=== PATIENT | female | born 1970 | race Caucasian/White ===

== ENCOUNTER 2017-07-13 06:27 | Emergency (ER) | payer MEDICAID ==
[~2017-07-13] VITALS: Ht 157.5 cm; Wt 64.0 kg
[~2017-07-13 06:27] MED LIST: CIPR500T4 PO; LORA-441 PO; RANI150T9 PO; SUCR1TAB56 PO
[2017-07-13 06:30] VITALS: Ht 157.5 cm; Wt 64.0 kg
--- NOTE | 2017-07-13 07:06 | RADRPT ---
PROCEDURE: XR Chest. CLINICAL INDICATION: Chest pain, shortness of breath TECHNIQUE: Single frontal view of the chest was obtained COMPARISON: None FINDINGS: The heart and mediastinum are within normal limits. The lungs are clear. There is no pleural effusion or pneumothorax. The bones and soft tissue show no acute change. IMPRESSION: No definite abnormalities are identified. RPTAT:AAJJ Physician Johnathan Date Time Electronically viewed and signed by Zbigniew Oseguera Physician on 07/13/2017 07:05 KIYA/
[2017-07-13] MEDS ORDERED: ALPR0.5T PO (07:20)
--- NOTE | 2017-07-13 07:50 | ERD ---
ER Documentation Chief Complaint Chief Complaint Complains of midsternal chest pain and pressure since this am HPI Patient is a 47-year-old female with no medical problems who presents with palpitations. She said this started last night and Sunday. They come and go. She has had no chest pain. She says that she is having the palpitations currently. She has no treatment as of yet. She has not called her primary doctor as of yet. Her primary doctor is Dr. Omayra Reynoso. Upon review of old medical records this is the patient's fifth visit to the ER since 2007. ROS All systems reviewed and are negative except as per history of present illness. Medications Home Meds Active Scripts Alprazolam* (Xanax*) 0.5 Mg Tab, 0.5 MG PO Q8H Y for ANXIETY, #6 TAB Prov:KENNEDI JAMISON MD 07/13/17 Ranitidine Hcl* (Zantac*) 150 Mg Tablet, 150 MG PO BID Y for PAIN, #30 TAB Prov:CIPRIANO REYNOSO PA-C 04/05/15 Sucralfate* (Carafate*) 1 Gm Tab, 1 GM PO QID, #30 TAB Prov:CIPRIANO REYNOSO PA-C 04/05/15 Ciprofloxacin Hcl* (Ciprofloxacin Hcl*) 500 Mg Tablet, 500 MG PO BID for 3 Days , TAB Prov:CIPRIANO REYNOSO PA-C 04/05/15 Lorazepam* (Ativan*) 0.5 Mg Tablet, 0.5 MG PO Q8, #6 Q8 or prn anxiety Prov:CIPRIANO REYNOSO PA-C 03/23/15 Allergies Allergies: Coded Allergies: No Known Drug Allergies (Verified Allergy, Unknown, 03/23/15) PMhx/Soc History of Surgery: Yes ( X 2) Anesthesia Reaction: No Hx Neurological Disorder: No Hx Respiratory Disorders: No Hx Cardiac Disorders: No Hx Psychiatric Problems: Yes (ANXIETY) Hx Miscellaneous Medical Probl: Yes (THYROID, GASTRITIS) Hx Alcohol Use: No Hx Substance Use: No Hx Tobacco Use: No Smoking Status: Never smoker FmHx Family History: No coronary disease Physical Exam Vitals Vital Signs Date Time Temp Pulse Resp B/P Pulse Ox O2 Delivery O2 Flow Rate FiO2 07/13/17 06:30 98.2 82 20 135/73 97 Physical Exam Const: No acute distress Head: Atraumatic Eyes: Normal Conjunctiva ENT: Normal External Ears, Nose and Mouth. Neck: Full range of motion..~ No meningismus. Resp: Clear to auscultation bilaterally Cardio: Regular rate and rhythm, no murmurs Abd: Soft, non tender, non distended. Normal bowel sounds Skin: No petechiae or rashes Back: No midline or flank tenderness Ext: No cyanosis, or edema Neur: Awake and alert Psych: Normal Mood and Affect Procedures/MDM EKG read by me: Rate/Rhythm: Regular rate and rhythm at a normal rate Intervals: Normal Impression: No evidence of ischemia or arrhythmia Chest x-ray negative per radiology. Patient is a 47-year-old female with no medical problems who presents with palpitations. Her EKG is normal without signs of ischemia or arrhythmia. Chest x-ray shows no pneumonia or pneumothorax. At this point I doubt acute coronary syndrome, pneumonia, pneumothorax, pulmonary embolism, or aortic dissection. She has no cardiac risk factors at this time. The patient will be discharged home and will need to follow-up with her primary doctor within 24-48 hours. She can return sooner for any worsening symptoms. The patient understands the plan and is okay for discharge at this time. Part of her symptoms may be related to anxiety so I will prescribe a short course of Xanax for symptomatic relief. Departure Diagnosis: Primary Impression: Palpitations Condition: Fair Patient Instructions: Palpitations Additional Instructions: Llame al doctor ZBIGNIEW y trent josh YANCI PARA DENTRO DE 1-2 GARCIA.Dgale a la secretaria que nosotros le instruimos hacer esta yanci.Avise o llame si graff condicin se empeora antes de la yanci. Regresa aqui si peor o no mejor. KENNEDI JAMISON MD Jul 13, 2017 07:50
[2017-07-13 07:55] VITALS: BP 118/80; PULSE 66; RESP 16; TEMP 98.1
== END 2017-07-13 07:55 | disposition home or self-care (01) ==
LOC: E/R 06:27
DX: R00.2 Palpitations (principal)
CPT/HCPCS: 71010; 93005; Z7502

== ENCOUNTER 2018-02-25 10:30 | Emergency (ER) | END 2018-02-25 13:10 | disposition home or self-care (01) ==